=== PATIENT | female | born 1975 | race Native Hawaiian/Other Pacific Islander ===

== ENCOUNTER 2018-09-05 20:04 | Emergency (ER) | payer MEDICARE, MEDICAID ==
--- NOTE | 2018-09-05 20:11 | Emergency Department Report ---
Blank Doc - Documentation Documentation: This is a 43-year-old female that presents with left flank pain that radiates to left upper abdominal area that started last night. Also c/o of dysuria. Denies any nausea or vomiting. Denies any other complaints. This initial assessment diagnostic orders/clinical plan/treatment(s) is/are subject to change based on patient's health status, clinical progression and re- assessment by fellow clinical providers in the ED. Further treatment and workup at subsequent clinical providers discretion. Patient/guardians urged not to elope from ED s their condition may be serious if not clinically assessed and managed. Initial orders include: 1-Patient sent to [facility] for further evaluation and treatment. 2- labs 3- UA
[2018-09-05 20:41] LABS: Basophils # (Auto) 0.1 K/mm3 (0.0-0.1); Basophils % (Auto) 0.8 % (0.0-1.8); Eosinophils # (Auto) 0.1 K/mm3 (0.0-0.4); Eosinophils % (Auto) 0.6 % (0.0-4.3); Hematocrit 36.9 % (30.3-42.9); Hemoglobin 12.7 gm/dl (10.1-14.3); Lymphocytes # (Auto) 2.5 K/mm3 (1.2-5.4); Mean Corpuscular HGB Conc 34 % (30-34); Mean Corpuscular Volume 76 fl (79-97); Monocytes # (Auto) 1.2 K/mm3 (0.0-0.8); Monocytes % (Auto) 7.6 % (0.0-7.3); Platelet Count 305 K/mm3 (140-440); Red Blood Count 4.88 M/mm3 (3.65-5.03); Red Cell Distribution Width 18.5 % (13.2-15.2)
[2018-09-05 20:59] LABS: Bilirubin,Urine NEG (Negative); Blood,Urine NEG (Negative); Color,Urine Straw (Yellow); Protein,Urine <15 mg/dL mg/dL (Negative); Urobilinogen,Urine < 2.0 mg/dL (<2.0); WBC,Urine < 1.0 /HPF (0.0-6.0)
[2018-09-05 21:07] LABS: Alanine Aminotransferase 14 units/L (7-56); Albumin 4.1 g/dL (3.9-5); BUN/Creatinine Ratio 14; Blood Urea Nitrogen 15 mg/dL (7-17); Hemolysis Index 21
[2018-09-05] MEDS ORDERED: NORCO 5/325 PO ONE (21:48)
[2018-09-05] MEDS ORDERED: NORCO 5/325 ONE (21:50)
[2018-09-05] MEDS ORDERED: MORPHINE IV ONE (22:09)
[2018-09-05] MEDS ORDERED: NACL 0.9% 1000 ML 1,000 ML IV ONE (22:09)
[2018-09-05] MEDS ORDERED: ZOFRAN IV ONE (22:09)
--- NOTE | 2018-09-05 22:09 | Emergency Department Report ---
ED Abdominal Pain HPI - General Chief Complaint: Abdominal Pain Stated Complaint: ABD PAIN Time Seen by Provider: 09/05/18 20:09 Source: patient, family Mode of arrival: Ambulatory Limitations: No Limitations - History of Present Illness Initial Comments: 43-year-old female here reported that she has been having left flank pain and mid pelvic pain for the past 2 days. Reports that she has been having some urinary burning and frequency. Last menstrual cycle was 08/29/2018. Denies any vaginal discharge or bleeding. Denies any chest pain or shortness of breath. Denies any cough or cold symptoms. Pain is 8 out of 10 and crampy and comes and goes. She has a history of high blood pressure and no surgical history. She denies any blood in her urine. Denies taking any medication. No alleviating or exacerbating factors MD Complaint: abdominal pain, flank pain Onset/Timin -: days(s) Location: suprapubic, L flank Radiation: none Migration to: no migration Severity: severe Severity scale (0 -10): 8 Quality: cramping, sharp Improves With: nothing Worsens With: nothing Context: other (unknown) Associated Symptoms: dysuria. denies: nausea, vomiting, diarrhea, fever, chills, constipation, hematemesis, hematochezia, melena, hematuria, anorexia, syncope Treatments Prior to Arrival: other (none) - Related Data LMP Date: 08/29/18 Previous Rx's Medication Instructions Recorded Last Taken Type Ciprofloxacin HCl [Ciprofloxacin 500 mg PO Q12H 10 Days #20 tab 09/06/18 Unknown Rx TAB] Naproxen [Naprosyn] 500 mg PO BID PRN #12 tablet 09/06/18 Unknown Rx Ondansetron [Zofran ODT TAB] 8 mg PO Q8HR PRN #12 tab.rapdis 09/06/18 Unknown Rx Phenazopyridine [Pyridium] 100 mg PO TID PRN 3 Days #9 tab 09/06/18 Unknown Rx Allergies Allergy/AdvReac Type Severity Reaction Status Date / Time No Known Allergies Allergy Unverified 09/05/18 20:07 ED Review of Systems ROS: Stated complaint: ABD PAIN Other details as noted in HPI Constitutional: denies: chills, fever Eyes: denies: eye discharge ENT: denies: ear pain, throat pain, congestion Respiratory: denies: cough, shortness of breath, wheezing Cardiovascular: denies: chest pain, palpitations, edema, syncope Gastrointestinal: denies: abdominal pain, nausea, vomiting, constipation Genitourinary: dysuria, frequency. denies: urgency, hematuria, discharge, abnormal menses Musculoskeletal: denies: back pain, joint swelling, arthralgia Skin: denies: rash Neurological: denies: headache, weakness, paresthesias ED Past Medical Hx - Past Medical History Previous Medical History?: Yes Hx Hypertension: Yes - Surgical History Past Surgical History?: No - Family History Family history: hypertension - Social History Smoking Status: Never Smoker Substance Use Type: None - Medications Home Medications: Home Medications Medication Instructions Recorded Confirmed Last Taken Type Ciprofloxacin HCl [Ciprofloxacin 500 mg PO Q12H 10 Days #20 tab 09/06/18 Unknown Rx TAB] Naproxen [Naprosyn] 500 mg PO BID PRN #12 tablet 09/06/18 Unknown Rx Ondansetron [Zofran ODT TAB] 8 mg PO Q8HR PRN #12 tab.rapdis 09/06/18 Unknown Rx Phenazopyridine [Pyridium] 100 mg PO TID PRN 3 Days #9 tab 09/06/18 Unknown Rx ED Physical Exam - General Limitations: No Limitations General appearance: alert, in no apparent distress - Head Head exam: Present: atraumatic, normocephalic, normal inspection - Eye Eye exam: Present: normal appearance, PERRL, EOMI Pupils: Present: normal accommodation - ENT ENT exam: Present: normal exam, normal orophraynx, mucous membranes moist, TM's normal bilaterally, normal external ear exam - Neck Neck exam: Present: normal inspection, full ROM. Absent: tenderness, lymphadenopathy - Respiratory Respiratory exam: Present: normal lung sounds bilaterally. Absent: respiratory distress, chest wall tenderness - Cardiovascular Cardiovascular Exam: Present: normal rhythm, tachycardia, normal heart sounds - GI/Abdominal GI/Abdominal exam: Present: soft, tenderness (suprapubic tenderness), normal bowel sounds. Absent: distended, guarding, rebound, rigid, organomegaly, mass, bruit - Extremities Exam Extremities exam: Present: normal inspection, full ROM, normal capillary refill, other (No cce. + 2 pulses in all extremities, no neurovascular compromise). Absent: tenderness, pedal edema, joint swelling, calf tenderness - Back Exam Back exam: Present: normal inspection, full ROM, CVA tenderness (L), other (,ambulates without any difficulties). Absent: tenderness, CVA tenderness (R), muscle spasm, paraspinal tenderness, vertebral tenderness, rash noted - Neurological Exam Neurological exam: Present: alert, oriented X3, normal gait - Psychiatric Psychiatric exam: Present: normal affect, normal mood - Skin Skin exam: Present: warm, dry, intact, normal color. Absent: rash ED Course Vital Signs 09/05/18 09/06/18 20:11 02:31 Temperature 98 F 98.1 F Pulse Rate 109 H 83 Respiratory 18 18 Rate Blood Pressure 144/90 113/73 O2 Sat by Pulse 99 100 Oximetry - Reevaluation(s) Reevaluation #1: 09/05/18 22:46 Patient received Mather 5/325 2 tablets by mouth emergency room and she had no relief of pain. Plan to start IV fluid with IV pain medicine and nausea medicine Reevaluation #2: 09/06/18 01:03 Patient had 1 L of normal saline, IV, morphine 4 mg IV and Zofran 8 mg IV which helped her pain. Abdomen is nontender to palpate of present Reevaluation #3: 09/06/18 02:04 Patient potassium is 3.1 and she received KCl 40 mEq. Sodium is slightly low and she got a liter of IV fluids so suspect this will Correct low sodium. Abdominal exam remained normal and she is not having any pain at present. ED Medical Decision Making - Lab Data Result diagrams: 09/05/18 20:24 09/05/18 20:24 Lab Results 09/05/18 09/05/18 09/05/18 Range/Units 20:24 20:24 20:24 WBC 15.9 H (4.5-11.0) K/mm3 RBC 4.88 (3.65-5.03) M/mm3 Hgb 12.7 (10.1-14.3) gm/dl Hct 36.9 (30.3-42.9) % MCV 76 L (79-97) fl MCH 26 L (28-32) pg MCHC 34 (30-34) % RDW 18.5 H (13.2-15.2) % Plt Count 305 (140-440) K/mm3 Lymph % (Auto) 16.0 (13.4-35.0) % [place] % (Auto) 7.6 H (0.0-7.3) % Eos % (Auto) 0.6 (0.0-4.3) % Baso % (Auto) 0.8 (0.0-1.8) % Lymph # 2.5 (1.2-5.4) K/mm3 [place] # 1.2 H (0.0-0.8) K/mm3 Eos # 0.1 (0.0-0.4) K/mm3 Baso # 0.1 (0.0-0.1) K/mm3 Seg Neutrophils % 75.0 H (40.0-70.0) % Seg Neutrophils # 11.9 H (1.8-7.7) K/mm3 Sodium 135 L (137-145) mmol/L Potassium 3.0 L (3.6-5.0) mmol/L Chloride 98.1 (98-107) mmol/L Carbon Dioxide 22 (22-30) mmol/L Anion Gap 18 mmol/L BUN 15 (7-17) mg/dL Creatinine 1.1 (0.7-1.2) mg/dL Estimated GFR 55 ml/min BUN/Creatinine Ratio 14 % Glucose 108 H (65-100) mg/dL Calcium 9.0 (8.4-10.2) mg/dL Total Bilirubin < 0.20 (0.1-1.2) mg/dL AST 17 (5-40) units/L ALT 14 (7-56) units/L Alkaline Phosphatase 80 (35-129) units/L Total Protein 7.5 (6.3-8.2) g/dL Albumin 4.1 (3.9-5) g/dL Albumin/Globulin Ratio 1.2 % Lipase (13-60) units/L HCG, Qual Negative (Negative) Urine Color (Yellow) Urine Turbidity (Clear) Urine pH (5.0-7.0) Ur Specific [place] (1.003-1.030) Urine Protein (Negative) mg/dL Urine Glucose (UA) (Negative) mg/dL Urine Ketones (Negative) mg/dL Urine Blood (Negative) Urine Nitrite (Negative) Urine Bilirubin (Negative) Urine Urobilinogen (<2.0) mg/dL Ur Leukocyte Esterase (Negative) Urine WBC (Auto) (0.0-6.0) /HPF Urine RBC (Auto) (0.0-6.0) /HPF U Epithel Cells (Auto) (0-13.0) /HPF 09/05/18 09/05/18 Range/Units 22:49 Unknown WBC (4.5-11.0) K/mm3 RBC (3.65-5.03) M/mm3 Hgb (10.1-14.3) gm/dl Hct (30.3-42.9) % MCV (79-97) fl MCH (28-32) pg MCHC (30-34) % RDW (13.2-15.2) % Plt Count (140-440) K/mm3 Lymph % (Auto) (13.4-35.0) % [place] % (Auto) (0.0-7.3) % Eos % (Auto) (0.0-4.3) % Baso % (Auto) (0.0-1.8) % Lymph # (1.2-5.4) K/mm3 [place] # (0.0-0.8) K/mm3 Eos # (0.0-0.4) K/mm3 Baso # (0.0-0.1) K/mm3 Seg Neutrophils % (40.0-70.0) % Seg Neutrophils # (1.8-7.7) K/mm3 Sodium (137-145) mmol/L Potassium (3.6-5.0) mmol/L Chloride (98-107) mmol/L Carbon Dioxide (22-30) mmol/L Anion Gap mmol/L BUN (7-17) mg/dL Creatinine (0.7-1.2) mg/dL Estimated GFR ml/min BUN/Creatinine Ratio % Glucose (65-100) mg/dL Calcium (8.4-10.2) mg/dL Total Bilirubin (0.1-1.2) mg/dL AST (5-40) units/L ALT (7-56) units/L Alkaline Phosphatase (35-129) units/L Total Protein (6.3-8.2) g/dL Albumin (3.9-5) g/dL Albumin/Globulin Ratio % Lipase 24 (13-60) units/L HCG, Qual (Negative) Urine Color Straw (Yellow) Urine Turbidity Clear (Clear) Urine pH 6.0 (5.0-7.0) Ur Specific [place] 1.011 (1.003-1.030) Urine Protein <15 mg/dl (Negative) mg/dL Urine Glucose (UA) Neg (Negative) mg/dL Urine Ketones Neg (Negative) mg/dL Urine Blood Neg (Negative) Urine Nitrite Neg (Negative) Urine Bilirubin Neg (Negative) Urine Urobilinogen < 2.0 (<2.0) mg/dL Ur Leukocyte Esterase Neg (Negative) Urine WBC (Auto) < 1.0 (0.0-6.0) /HPF Urine RBC (Auto) 1.0 (0.0-6.0) /HPF U Epithel Cells (Auto) 1.0 (0-13.0) /HPF - Radiology Data Radiology results: report reviewed Patient CT scan of the abdomen and pelvis with IV contrast and was dictated by radiologist report reviewed by myself. Please see report below Findings [facility] [address] [place] [address] Cat Scan Report Signed Patient: JANES RENNER MR#: [id number] : 1975 Acct:[id number] Age/Sex: 43 / F ADM Date: 09/05/18 Loc: ED Attending Dr: Ordering Physician: DENISE BOX Date of Service: 09/05/18 Procedure(s): CT abdomen pelvis w con Accession Number(s): [id number] cc: DENISE BOX FINAL REPORT PROCEDURE: CT ABDOMEN PELVIS W CON TECHNIQUE: Computerized axial tomography of the abdomen and pelvis was performed after the IV injection of iodinated nonionic contrast. HISTORY: abominal pain [place] COMPARISON: No prior studies are available for comparison. FINDINGS: Visualized lower thorax: No significant abnormality. Liver: Normal size and attenuation. Spleen: Normal size and attenuation. Gallbladder and biliary system: Normal. Pancreas: Normal. Adrenals: Normal. Kidneys: Normal. GI tract: There is no bowel obstruction, colitis or enteritis. The appendix is normal.. Lymph nodes and mesentery: Normal. Vasculature: Normal. Bladder: Normal. Reproductive organs: The uterus is enlarged. There is a low-density the intramural mass measuring 7 x 5.7 x 6.8 centimeters suggesting a fibroid. No ovarian abnormality is identified.. Peritoneum: There is no ascites or free air, abscess or adenopathy.. Musculoskeletal structures: No significant abnormality. Other: None. IMPRESSION: There is no bowel obstruction, colitis or enteritis. The appendix is normal. The uterus is enlarged. There is a low-density the intramural mass measuring 7 x 5.7 x 6.8 centimeters suggesting a fibroid. No ovarian abnormality is identified. There is no ascites or free air, abscess or adenopathy. Transcribed By: CO Dictated By: ERASMO BARRERA MD Electronically Authenticated By: ERASMO BARRERA MD Signed Date/Time: 09/06/1825 DD/ TD/TT: 09/06/1823 - Medical Decision Making This is a 43-year-old female here complaining the mid pelvic pain and left flank pain. Please see notes and exam section for details. CBC stable except patient with elevated white count at this 15.9 with slight ba cterial shift to the left. CMP is stable except she has slight decrease in sodium and she got a liter of normal saline and her potassium is 3. all which she received 40 mEq of potassium by mouth. Urinalysis is stable. Urine culture sent because patient is complaining of urinary frequency and urgency. CT scan of abdomen and pelvis with IV contrast shows There is no bowel obstruction, colitis or enteritis. The appendix is normal. The uterus is enlarged. There is a low-density the intramural mass measuring 7 x 5.7 x 6.8 centimeters suggesting a fibroid. No ovarian abnormality is identified. There is no ascites or free air, abscess or adenopathy. Assessment/plan Dysuria and urinary frequency with normal UA-patient and treated for sterile pyelonephritis and started on Levaquin 500 mg by mouth and will be sent home on ciprofloxacin. Abdominal pain-patient given Mather, morphine IV and pain is controlled. CT scan with fibroid and will refer to [facility] for management. Leukocytosis-suspect from sterile pyelo-and patient received 1 L of IV fluid and urine culture sent Hypokalemia-patient received 40 mEq of potassium 1 dose. Potassium is 3.0 and I told her that she needs to follow up with her primary care physician on Monday and also send her home on potassium supplements. Hyponatremia-received IV fluids normal saline [address] scan results laboratory results the patient along with diagnosis, medication and treatment plan. I also discussed that she needs to follow-up regarding her fibroids at [facility] and also low potassium with her primary care physician and she voiced understanding. Patient stable, vital signs stable she is afebrile and discharged home in stable condition with prescription for potassium chloride, naproxen, ciprofloxacin and Zofran and I instructed her if her pain returns with fever and or chills, nausea and vomiting to return to the emergency room otherwise follow-up with her primary care and [facility]. She voiced understanding - Differential Diagnosis ABELARDO, colitis, appendicitis, UTI, ectopic , pelvic abnormality, Critical care attestation.: If time is entered above; I have spent that time in minutes in the direct care of this critically ill patient, excluding procedure time. ED Disposition Clinical Impression: Pelvic pain, Pyelitis or pyelonephritis in diseases classified elsewhere, Flank pain, acute, Hypokalemia Uterine fibroid Qualifiers: Uterine leiomyoma location: intramural Qualified Code(s): D25.1 - Intramural leiomyoma of uterus Leukocytosis Qualifiers: Leukocytosis type: unspecified Qualified Code(s): D72.829 - Elevated white blood cell count, unspecified Disposition: DC- TO HOME OR SELFCARE Is pt being admited?: No Does the pt Need Aspirin: No Condition: Stable Instructions: Acute Pyelonephritis (ED), Leukocytosis (ED), Dysuria (ED), Abdominal Pain (ED), Flank Pain (ED) Additional Instructions: Please take antibiotic as prescribed. If his symptoms worsen, return to the emergency room otherwise follow-up U primary care and also [facility]. Increase the fluid intake to 2-3 L of water daily to flush your kidneys. Take naproxen for pain and try to take with food as this medication cause irritation to stomach lining Prescriptions: Ciprofloxacin HCl [Ciprofloxacin TAB] 500 mg PO Q12H 10 Days #20 tab Naproxen [Naprosyn] 500 mg PO BID PRN #12 tablet PRN Reason: abdominal cramping Ondansetron [Zofran ODT TAB] 8 mg PO Q8HR PRN #12 tab.rapdis PRN Reason: nausea and her vomiting Phenazopyridine [Pyridium] 100 mg PO TID PRN 3 Days #9 tab PRN Reason: urine burning Referrals: [facility] [Primary Care Provider] - 09/07/18 [facility] [Provider Group] - 09/10/18 Forms: Accompanied Note, Work/School Release Form(ED)
[2018-09-05] MEDS ORDERED: K-DUR PO ONE (22:56)
--- NOTE | 2018-09-06 00:26 | Cat Scan Report ---
FINAL REPORT PROCEDURE: CT ABDOMEN PELVIS W CON TECHNIQUE: Computerized axial tomography of the abdomen and pelvis was performed after the IV inject ion of iodinated nonionic contrast. HISTORY: abominal pain [place] COMPARISON: No prior studies are available for comparison. FINDINGS: Visualized lower thorax: No significant abnormality. Liver: Normal size and attenuation. Spleen: Normal size and attenuation. Gallbladder and biliary system: Normal. Pancreas: Normal. Adrenals: Normal. Kidneys: Normal. GI tract: There is no bowel obstruction, colitis or enteritis. The appendix is normal.. Lymph nodes and mesentery: Normal. Vasculature: Normal. Bladder: Normal. Reproductive organs: The uterus is enlarged. There is a low-density the intramural mass measuring 7 x 5.7 x 6.8 centimeters suggesting a fibroid. No ovarian abnormality is identified.. Peritoneum: There is no ascites or free air, abscess or adenopathy.. Musculoskeletal structures: No significant abnormality. Other: None. IMPRESSION: There is no bowel obstruction, colitis or enteritis. The appendix is normal. The uterus is enlarged. There is a low-density the intramural mass measuring 7 x 5.7 x 6.8 centimeter s suggesting a fibroid. No ovarian abnormality is identified. There is no ascites or free air, abscess or adenopathy.
[2018-09-06] MEDS ORDERED: LEVAQUIN PO ONE (01:17)
[2018-09-06 02:41] VITALS: BP 113/73
== END 2018-09-06 02:46 | disposition home or self-care (01) ==
LOC: ED 20:04
DX: N12 Tubulo-interstitial nephritis, not specified as acute or chronic (principal); E87.6 Hypokalemia; D25.1 Intramural leiomyoma of uterus; D72.829 Elevated white blood cell count, unspecified; I10 Essential (primary) hypertension
CPT/HCPCS: 36415; 74177; 80053; 81001; 83690; 84703; 85025; 87086; 96374; 96375; 99284; J2270; J2405; J7030; Q9967; 96361